=== PATIENT | male | born 1955 | race Caucasian/White ===

== ENCOUNTER 2019-04-20 17:49 | Emergency (ER) | payer OTHER ==
[2019-04-20 19:38] LABS: URINE BLOOD (Dip) POC 1+ (NEGATIVE); URINE KETONES (Dip) POC Negative (NEGATIVE); URINE LEUKOCYTE EST (Dip) POC Trace (NEGATIVE); URINE NITRITE (Dip) POC Negative (NEGATIVE); URINE TOTAL PROTEIN POC 1+ (NEGATIVE)
[2019-04-20] MEDS: IBUPROFEN 600 MG TAB PO (19:43)
== END 2019-04-20 20:28 | disposition home or self-care (01) ==
LOC: FTE 17:49
DX: R39.89 Other symptoms and signs involving the genitourinary system (principal); Z85.038 Personal history of other malignant neoplasm of large intestine
CPT/HCPCS: 81003; 87086; 99283